=== PATIENT | male | born 1955 | race Caucasian/White ===

== ENCOUNTER 2017-11-23 17:18 | Observation (INO) | payer BC ==
[~2017-11-23] VITALS: Ht 182.9 cm; Wt 127.2 kg
[~2017-11-23 17:18] MED LIST: ALEVE220 M2 PO; ASPIR-LOW81 M1 PO; B COMPLEX1 EACH PO; BISOPROLOL FUMAR5 MG PO; EFFIENT10 MG PO; FISH OIL 1,0001 EAC7 PO; HYDROCHLOROTHIA25 MG PO; INDERAL60 MG PO; INDERIDE 40/1 TABLET PO; KLOR-CON M2020 MEQ PO; LIPITOR20 MG PO; LIPITOR80 MG PO; LISINOPRIL2.5 MG PO; LITE COAT ASPI325 M1 PO; LORTAB 5-325 M1 EACH PO; NEXIUM40 MG PO; OMEPRAZOLE40 M1 PO; SAW PALMETTO160 MG PO; SKELAXIN800 MG PO; TRICOR48 MG PO; Vicodin,Norco 5/325 PO
[2017-11-23 18:12] LABS: HEMATOCRIT 45.2 % (38.0-50.0); HEMOGLOBIN 15.2 G/DL (12.5-16.6); MCH 29.8 PG (29.0-34.0); MCHC 33.6 G/DL (30.0-36.0); MCV 88.6 FL (86-99); PLATELET COUNT 270 K/uL (156-360); RBC DIS.WIDTH-CV 14.1 % (11.8-14.6); RBC DIS.WIDTH-SD 45.6 % (39-53); WHITE BLOOD COUNT 9.9 K/uL (4.1-10.2)
[2017-11-23 18:27] LABS: ALBUMIN 4.3 g/dL (3.2-4.8); CHLORIDE 105 mEq/L (99-109); POTASSIUM 3.6 mEq/L (3.7-5.4); SODIUM 142 mEq/L (136-147)
[2017-11-23 18:29] LABS: GLUCOSE 123 mg/dL (70-99)
[2017-11-23 18:30] LABS: TOTAL PROTEIN 8.1 g/dL (6.4-8.3)
[2017-11-23 18:31] LABS: TOTAL BILIRUBIN 0.9 mg/dL (0.0-1.0)
[2017-11-23 18:33] LABS: ALKALINE PHOSPHATASE 86 IU/L (3-129); GFR ESTIMATE (CALCULATED) > 59 mL/min/ (58.99-99999)
[2017-11-23 18:34] LABS: UREA NITROGEN (BUN) 17 mg/dL (9-23)
[2017-11-23 18:35] LABS: AST (GOT) 21 IU/L (2-34)
[2017-11-23 18:36] LABS: ALT (GPT) 25 IU/L (3-49)
[2017-11-23 18:38] LABS: TROP-I INTERPRETATION NEGATIVE; TROPONIN-I < 0.01 ng/mL (0.0-0.30)
[2017-11-23 20:01] LABS: D-DIMER ELISA < 150.00 ng/mLDDU (<230)
[2017-11-23] MEDS ORDERED: TYLENOL REGULA325 MG PO (20:42)
[2017-11-23 21:53] LABS: TROP-I INTERPRETATION NEGATIVE; TROPONIN-I 0.04 ng/mL (0.0-0.30)
[2017-11-24 05:41] LABS: TROP-I INTERPRETATION NEGATIVE; TROPONIN-I 0.06 ng/mL (0.0-0.30)
[2017-11-24 07:32] VITALS: BP 116/68
[2017-11-24 12:06] VITALS: BP 118/74
[2017-11-24 12:20] LABS: TROP-I INTERPRETATION NEGATIVE; TROPONIN-I 0.03 ng/mL (0.0-0.30)
[2017-11-24 15:19] VITALS: BP 15/60; BP 158/60
== END 2017-11-24 17:47 | disposition home or self-care (01) ==
LOC: EME 17:18 → EDOF 23:44 → 4EAST 23:44 → EDOF 23:44 → ENRESERV 23:47 → 4EAST 11-24 07:07
PROVIDERS: Physician Assistant
DX: R07.9 Chest pain, unspecified (principal); R06.02 Shortness of breath; R94.31 Abnormal electrocardiogram [ECG] [EKG]; E87.6 Hypokalemia; I11.9 Hypertensive heart disease without heart failure; M30.3 Mucocutaneous lymph node syndrome [Kawasaki]; I25.10 Atherosclerotic heart disease of native coronary artery without angina pectoris; I25.2 Old myocardial infarction; E78.5 Hyperlipidemia, unspecified; N40.0 Benign prostatic hyperplasia without lower urinary tract symptoms; K21.9 Gastro-esophageal reflux disease without esophagitis; Z79.82 Long term (current) use of aspirin; Z79.01 Long term (current) use of anticoagulants; F41.0 Panic disorder [episodic paroxysmal anxiety]; E66.9 Obesity, unspecified; Z68.38 Body mass index [BMI] 38.0-38.9, adult; Z87.11 Personal history of peptic ulcer disease; Z90.49 Acquired absence of other specified parts of digestive tract; Z87.891 Personal history of nicotine dependence; Z83.3 Family history of diabetes mellitus; Z82.0 Family history of epilepsy and other diseases of the nervous system
CPT/HCPCS: 71046; 80053; 84484; 85027; 85379; 93005; 93306; 99281; 99285; G0378; J1644